=== PATIENT | female | born 1945 | race Caucasian/White ===

== ENCOUNTER 2018-03-31 17:49 | Emergency (ER) | payer MEDICARE, OTHER, MEDICAID ==
[2018-03-31 18:11] LABS: ADD MAN DIFF? NO
[2018-03-31 18:14] LABS: WHITE BLOOD COUNT 5.9 10^3/ul (4.8-10.8)
[2018-03-31 18:14] LABS: BASOPHILS % 0.3 % (0.0-2.0); EOSINOPHILS # 0.1 10^3/ul (0.0-0.5); EOSINOPHILS % 1.9 % (0.0-7.0); HEMATOCRIT 34.2 % (37.0-47.0); HEMOGLOBIN 10.8 g/dl (12.0-16.0); LYMPHOCYTES # 1.9 10^3/ul (0.8-2.9); LYMPHOCYTES % 31.6 % (15.0-51.0); MEAN CORPUSCULAR HEMOGLOBIN 27.8 pg (29.0-33.0); MEAN CORPUSCULAR HGB CONC 31.6 g/dl (32.0-37.0); MEAN CORPUSCULAR VOLUME 88.1 fl (82.0-101.0); MEAN PLATELET VOLUME 10.7 fl (7.4-10.4); MONOCYTE # 0.8 10^3/ul (0.3-0.9); MONOCYTES % 13.1 % (0.0-11.0); NEUTROPHIL # 3.1 10^3/ul (1.6-7.5); NEUTROPHILS % 52.9 % (39.0-77.0); PLATELET COUNT 217 10^3/UL (140-415); RED BLOOD COUNT 3.88 10^6/ul (4.20-5.40); RED CELL DISTRIBUTION WIDTH 13.1 % (11.5-14.5)
[2018-03-31 18:34] LABS: INR 0.93; PARTIAL THROMBOPLASTIN TIME 27.2 Sec (23.0-35.0); PROTIME 12.6 Sec (11.9-14.9)
[2018-03-31 18:43] LABS: ANION GAP 10 (5-13); BLOOD UREA NITROGEN 15 mg/dl (7-20); CALCIUM 9.6 mg/dl (8.4-10.2); CARBON DIOXIDE 23 mmol/L (21-31); CHLORIDE 105 mmol/L (97-110); CREATININE 1.07 mg/dl (0.44-1.00); GLUCOSE 99 mg/dl (70-220); POTASSIUM 4.5 mmol/L (3.5-5.1); SODIUM 138 mmol/L (135-144)
[2018-03-31 18:54] LABS: TROPONIN-I < 0.012 ng/ml (0.000-0.120)
== END 2018-03-31 20:13 | disposition home or self-care (01) ==
LOC: E/R 17:49
DX: R51 Headache (principal); I10 Essential (primary) hypertension; R40.2252 Coma scale, best verbal response, oriented, at arrival to emergency department; R40.2142 Coma scale, eyes open, spontaneous, at arrival to emergency department; R40.2362 Coma scale, best motor response, obeys commands, at arrival to emergency department; J45.909 Unspecified asthma, uncomplicated
CPT/HCPCS: 70450; 80048; 84484; 85025; 85610; 85730; 99284-25